=== PATIENT | female | born 1955 | race Caucasian/White ===

== ENCOUNTER 2018-02-25 17:21 | Emergency (ER) | payer MEDICAID ==
[~2018-02-25] VITALS: Ht 152.4 cm; Wt 50.0 kg
[2018-02-25 17:43] VITALS: BP 147/76
[2018-02-25] MEDS ORDERED: janumet PO (17:47)
[2018-02-25 19:23] LABS: CHLORIDE 105 mEq/L (98-107)
== END 2018-02-25 20:21 | disposition home or self-care (01) ==
LOC: ER 17:43
DX: E11.9 Type 2 diabetes mellitus without complications (principal); Z98.890 Other specified postprocedural states; Z79.899 Other long term (current) drug therapy
CPT/HCPCS: 36415; 80048; 99283

== ENCOUNTER 2020-11-11 14:59 | Inpatient (IN) | payer MEDICAID, OTHER ==
[~2020-11-11] VITALS: Ht 165.1 cm; Wt 59.0 kg
[~2020-11-11 14:59] MED LIST: janumet PO
[2020-11-11] MEDS ORDERED: SODIUM CHLORIDE 0.9% 1,000 ML IV ONE (15:15)
[2020-11-11 16:11] LABS: BASOPHILS % 0.4 % (0.0-2.0); EOSINOPHILS % 0.9 % (0.0-5.0); HEMATOCRIT. 40.3 % (36.0-48.0); HEMOGLOBIN. 13.4 g/dL (12.0-16.0); MEAN CORPUSCULAR HEMOGLOBIN 27.7 pg (28.0-32.0); MEAN CORPUSCULAR VOLUME 83.6 fL (81.0-99.0); MEAN PLATELET VOLUME 10.6 fl (7.4-10.4); MONOCYTES % 11.4 % (2.0-8.0); NEUTROPHILS % 69.3 % (40.0-76.0); PLATELET 190 x1000/uL (130-400); RED BLOOD CELL COUNT 4.83 mill/uL (4.2-5.4); RED CELL DISTRIBUTION WIDTH 14.4 % (11.6-14.6)
[2020-11-11 16:13] LABS: CHLORIDE 107 mEq/L (98-107)
[2020-11-11 16:19] LABS: ETHANOL BLOOD < 10 mg/dL
[2020-11-11 16:22] LABS: LDL CHOLESTEROL 103 mg/dL (5-100)
[2020-11-11 16:24] LABS: CREATINE KINASE 41 IU/L (26-192)
[2020-11-11 18:07] LABS: CLARITY URINE CLEAR (CLEAR); COLOR URINE YELLOW (YELLOW); KETONES URINE 1+ (NEGATIVE); LEUKOCYTE ESTERASE URINE NEGATIVE (NEGATIVE); NITRITE URINE NEGATIVE (NEGATIVE); OCCULT BLOOD URINE NEGATIVE (NEGATIVE); PH URINE 5.5 (4.5-8.0); PROTEIN URINE TRACE (NEGATIVE); SPECIFIC GRAVITY URINE 1.027 (1.005-1.030); UROBILINOGEN URINE 0.2 E.U./dL (0.2-1.0)
[2020-11-11 18:22] LABS: *COCAINE SCREEN URINE NEGATIVE (NEGATIVE); METHADONE URINE SCREEN NEGATIVE (NEGATIVE)
[2020-11-11 18:23] LABS: *BARBITURATES SCREEN URINE NEGATIVE (NEGATIVE); *BENZODIAZEPINES SCREEN URINE NEGATIVE (NEGATIVE); CANNABINOID URINE SCREEN NEGATIVE (NEGATIVE); OPIATES URINE SCREEN NEGATIVE (NEGATIVE); PHENCYCLIDINE URINE SCREEN NEGATIVE (NEGATIVE)
[2020-11-11 18:24] LABS: *AMPHETAMINES SCREEN URINE NEGATIVE (NEGATIVE)
[2020-11-11] MEDS ORDERED: CLONIDINE 0.1MG TABLET PO PRN (19:00)
[2020-11-11] MEDS ORDERED: IPRATROPIUM/ALBUTEROL 0.5-3(2.5)MG/3ML NEB HHN PRN (19:00)
[2020-11-11] MEDS ORDERED: DIPHENHYDRAMINE 50MG/ML VIAL IV PRN (19:00)
[2020-11-11] MEDS ORDERED: ACETAMINOPHEN 325MG TABLET PO PRN (19:00)
[2020-11-11] MEDS ORDERED: ONDANSETRON HCL 4MG/2ML INJ IV PRN (19:00)
[2020-11-11] MEDS ORDERED: DEXTROSE 50% WATER 50ML SYRINGE IV PRN (19:15)
[2020-11-11] MEDS: INSULIN LISPRO 100 UNITS/ML SUBCUT SCH (21:00)
[2020-11-11] MEDS: BLOOD SUGAR DIAGNOSTIC STRIP TEST SCH (21:21)
[2020-11-12] VITALS: BP 141/76
[2020-11-12 02:17] VITALS: BP 138/72
[2020-11-12 04:00] VITALS: BP 122/60
[2020-11-12] MEDS: BLOOD SUGAR DIAGNOSTIC STRIP TEST SCH ×4 (07:28→21:00)
[2020-11-12] MEDS: INSULIN LISPRO 100 UNITS/ML SUBCUT SCH ×4 (07:28→22:17)
[2020-11-12 07:30] LABS: BASOPHILS % 0.4 % (0.0-2.0); EOSINOPHILS % 2.1 % (0.0-5.0); HEMATOCRIT. 37.5 % (36.0-48.0); HEMOGLOBIN. 12.3 g/dL (12.0-16.0); LYMPHOCYTES % 24.8 % (20.0-50.0); MEAN CORPUSCULAR HEMOGLOBIN 27.2 pg (28.0-32.0); MEAN CORPUSCULAR VOLUME 83.2 fL (81.0-99.0); MEAN PLATELET VOLUME 10.7 fl (7.4-10.4); MONOCYTES % 12.8 % (2.0-8.0); NEUTROPHILS % 59.9 % (40.0-76.0); PLATELET 179 x1000/uL (130-400); RED CELL DISTRIBUTION WIDTH 14.2 % (11.6-14.6)
[2020-11-12 07:32] LABS: CHLORIDE 108 mEq/L (98-107)
[2020-11-12 07:58] LABS: LDL CHOLESTEROL 92 mg/dL (5-100)
[2020-11-12 08:00] LABS: HDL CHOLESTEROL 51 mg/dL (40-59)
[2020-11-12] MEDS ORDERED: MEMA10TA55 MT (11:48)
[2020-11-12] MEDS ORDERED: DONE10TA36 MT (11:48)
[2020-11-12] MEDS ORDERED: *PATIENT'S OWN MEDICATION STORAGE XX SCH (12:15)
[2020-11-12] MEDS ORDERED: METF-416 MT (13:12)
[2020-11-12 21:11] VITALS: BP 110/62
[2020-11-13] VITALS: BP 112/66
[2020-11-13 04:00] VITALS: BP 132/62
[2020-11-13] MEDS: BLOOD SUGAR DIAGNOSTIC STRIP TEST SCH ×3 (06:37→17:47)
[2020-11-13] MEDS: INSULIN LISPRO 100 UNITS/ML SUBCUT SCH ×3 (06:37→18:11)
[2020-11-13 12:00] VITALS: BP 138/60
[2020-11-13 14:28] VITALS: BP 138/60
[2020-11-13 16:54] LABS: BASOPHILS % 0.5 % (0.0-2.0); EOSINOPHILS % 0.9 % (0.0-5.0); HEMATOCRIT. 37.3 % (36.0-48.0); HEMOGLOBIN. 12.4 g/dL (12.0-16.0); MEAN CORPUSCULAR HEMOGLOBIN 27.7 pg (28.0-32.0); MEAN CORPUSCULAR VOLUME 83.4 fL (81.0-99.0); MEAN PLATELET VOLUME 10.4 fl (7.4-10.4); MONOCYTES % 13.7 % (2.0-8.0); NEUTROPHILS % 64.9 % (40.0-76.0); PLATELET 198 x1000/uL (130-400); RED BLOOD CELL COUNT 4.47 mill/uL (4.2-5.4)
[2020-11-13 17:03] LABS: CHLORIDE 106 mEq/L (98-107)
== END 2020-11-13 18:25 | disposition home or self-care (01) | DRG 42 ==
LOC: ER 14:59 → 8WST 18:08 → EDBEDREQTM 18:16 → EDBEDREQ 18:16 → ENRESERV 21:33
PROVIDERS: ADMIT Internal Medicine; ATTEND Internal Medicine
DX: G30.9 Alzheimer's disease, unspecified (principal); J98.59 Other diseases of mediastinum, not elsewhere classified; G92 Toxic encephalopathy; E44.0 Moderate protein-calorie malnutrition; F02.80 Dementia in other diseases classified elsewhere, unspecified severity, without behavioral disturbance, psychotic disturbance, mood disturbance, and anxiety; E11.9 Type 2 diabetes mellitus without complications; I10 Essential (primary) hypertension; Z79.1 Long term (current) use of non-steroidal anti-inflammatories (NSAID); Z79.4 Long term (current) use of insulin; Z79.51 Long term (current) use of inhaled steroids; Z68.21 Body mass index [BMI] 21.0-21.9, adult
CPT/HCPCS: 36415; 70551; 71045; 71250; 80048; 80053; 80061; 80305; 80320; 81003; 82550; 82962; 83721; 83880; 84443; 84484; 85025; 92610; 93005; 93970; 99285; J1815; J7030; G0480